=== PATIENT | female | born 1985 | race Hispanic/Latino ===

== ENCOUNTER 2017-04-06 17:19 | Inpatient (IN) | payer BC, OTHER ==
[2017-04-06] MEDS ORDERED: Nalbuphine 20 mg/ml Inj (1 ml) IVP PRN (18:19)
--- NOTE | 2017-04-06 18:28 | OBADHP ---
Datetime: 04/06/2017 18:22 Admit Comment, IP Provider: at 38.6weeks came with c/o ctxs started from thursday , irrg, 01/31. pt has bee having pain ,no vb, lof,+fm. pt had a sonogram and baby weight 8.15 lb. obhx prim pmh den med pnv all nkda psh de soch de a/p at 38+weeks with prologed latent phase admit to l_d npo/ivf labs cont khari and efm pain management cervidil dr dietz aware anticipate Pelvic Type - PN: Adequate Extremities - PN: Normal Abdomen - PN: Normal Back - PN: Normal Breast - PN: Normal Lungs - PN: Normal Heart - PN: Normal Thyroid - PN: Normal Neurologic - PN: Normal HEENT - PN: Normal General - PN: Normal FHR - Baseline A Provider: 130 Contraction Comments Provider: q1-8 Comments, ACOG Physical Exam: gravid,non tender ext no edema,no calf ten IP Hx Assessment: The History has been Reviewed and is Current Vital Signs Provider: Reviewed; Within Normal Limits IP Chief Complaint: Uterine contractions NICHD Variability Prov Fetus A: Moderate 6-25bpm NICHD Accel Fetus A IP Provider: 15X15 FHR Category Provider Fetus A: Category I NICHD Decel Fetus A IP Provider: None Dilatation, Provider: ft Effacement, Provider: 30 Station, Provider: -3 Genitourinary Exam: Normal DTRs - PN: Normal EGA AdmitDate IP: 38.6 IP Adm Impression: Term, intrauterine ; No Active Labor; Intact Membranes IP Admit Plan: Admit to unit
[2017-04-06] MEDS ORDERED: Lactated Ringer's 1,000 ML IV SCH (18:30)
[2017-04-06 18:59] LABS: BASO % 0.1 % (0.0-2.0); EOS % 0.2 % (0.0-4.0); HEMATOCRIT 35.7 % (34.0-47.0); LYMPH # 1.7 K/uL (1.0-4.3); MEAN CELL VOLUME 92.6 fL (81.0-99.0); MEAN CORPUSCULAR HEMOGLOBIN 32.1 pg (27.0-31.0); MEAN CORPUSCULAR HGB CONC 34.7 g/dL (33.0-37.0); MEAN PLATELET VOLUME 8.1 fL (7.2-11.7); MONO # 0.9 K/uL (0.0-0.8); MONO % 7.1 % (0.0-10.0); NRBC % 0.1 % (0.0-2.0); RED CELL DISTRIBUTION WIDTH 13.8 % (11.5-14.5); WHITE BLOOD COUNT 12.9 K/uL (4.8-10.8)
[2017-04-06 19:08] LABS: CHLORIDE 104 mmol/L (98-107); POTASSIUM 3.7 mmol/L (3.6-5.2); SODIUM 135 mmol/L (132-148)
[2017-04-06 19:10] LABS: BILIRUBIN,TOTAL 0.5 mg/dL (0.2-1.3); GFR AFRICAN-AMERICAN > 60
[2017-04-06 19:11] LABS: ALKALINE PHOSPHATASE 116 U/L (38-126); ALT/SGPT 23 U/L (9-52); AST/SGOT 16 U/L (14-36); BLOOD UREA NITROGEN 8 mg/dL (7-17); CARBON DIOXIDE 20 mmol/L (22-30); GLUCOSE,RANDOM 90 mg/dL (65-105); TOTAL PROTEIN 6.2 g/dL (6.3-8.3); TRANSITIONAL EPITHIAL < 1 /hpf (0-3); URINE BACTERIA FEW (<OCC); URINE BILIRUBIN NEGATIVE (NEGATIVE); URINE BLOOD NEGATIVE (NEGATIVE); URINE CALCIUM OXALATE CRYSTALS FEW /hpf (<OCC); URINE COLOR Yellow (YELLOW); URINE GLUCOSE (UA) 1+ mg/dL (Normal); URINE KETONE 1+ mg/dL (NEGATIVE); URINE LEUKOCYTE ESTERASE NEG Leu/uL (Negative); URINE PROTEIN NEGATIVE (NEGATIVE); URINE UROBILINOGEN NORMAL mg/dL (0.2-1.0); WBC URINE 5 /hpf (0-5)
[2017-04-06 19:12] LABS: CALCIUM 8.9 mg/dl (8.6-10.4)
--- NOTE | 2017-04-06 20:12 | OBPN ---
Datetime: 04/06/2017 18:22 Contraction Comments Provider: q1-8 FHR - Baseline A Provider: 130 IP Progress Note Comment: pt was examined at bed side ve closed cervidil was placed r?a/b Vital Signs Provider: Reviewed; Within Normal Limits NICHD Accel Fetus A IP Provider: 15X15 FHR Category Provider Fetus A: Category I NICHD Variability Prov Fetus A: Moderate 6-25bpm Dilatation, Provider: ft Effacement, Provider: 30 Station, Provider: -3 NICHD Decel Fetus A IP Provider: None
--- NOTE | 2017-04-07 07:34 | OBPN ---
Datetime: 04/07/2017 07:32 IP Progress Impression: Reassuring heart rate IP Progress Plan: Continue present management Contraction Comments Provider: irregular IP Progress Note Comment: S-patient denies any pain.felt some contractions FHT cat1 Tooc occ ctx sve ft/30/-3 A/P Patient at 39 wga. -cervidil removed -monitor closely -plan as per primary MD FHR Category Provider Fetus A: Category I Dilatation, Provider: ft Effacement, Provider: 30 Station, Provider: -3
[2017-04-07] MEDS ORDERED: Oxytocin 30 UNIT 30 UNITS/500 ML BAG IV PRN (08:44)
[2017-04-07] MEDS ORDERED: Oxytocin 30 UNIT 30 UNITS/500 ML BAG IV ONE (09:10)
[2017-04-07] MEDS ORDERED: Nalbuphine 20 mg/ml Inj (1 ml) ONE (09:27)
[2017-04-07] MEDS ORDERED: Bupivacaine 0.125%/FentaNYL 200 ML EPI ONE (15:34)
--- NOTE | 2017-04-07 17:11 | OBPN ---
Datetime: 04/07/2017 17:05 IP Progress Note Comment: pt seen and examined, reports pain incrased intentiy adn fruqency s/ pIV m edicatin s/p cervdil now on pitocin VSS VE: unchanged EFM: cat I toco; q 2-3 min A/p @ 38 wks ga prlonged laten pahse -anethesi consult -cont current mgmt
[2017-04-07] MEDS ORDERED: DEXTROSE IVPB ONE (18:17)
[2017-04-07] MEDS ORDERED: Sodium Citrate/Citric Acid 15 ml Sol ONE (18:17)
[2017-04-07] MEDS ORDERED: CEFOXITIN IVPB ONE (18:17)
[2017-04-07] MEDS ORDERED: Sodium Citrate/Citric Acid 15 ml Sol PO ONE (18:23)
[2017-04-07] MEDS ORDERED: cefOXitin IV 2 gm in Saline 2 GM in Sodium Chloride 0.9% 50 ML IV ONE (18:30)
[2017-04-07] MEDS ORDERED: Morphine 1 mg/ml preservative-free Inj(Duramorph) ONE (18:42)
--- NOTE | 2017-04-07 18:59 | OBPN ---
Datetime: 04/07/2017 18:39 IP Progress Note Comment: pt seen adn examined s/p epidural and rexamined with uncahged exam. pt counlsed on continue with process vs OLTCS. R/b/a/i d/w paitent not limited ot bleeding, infect ion, etc. pt and woul dliek to proceed with PLTCS althought awrae process can take 24 hours + consent signed for PLTCS Failure ot progress OR/Anestehsia kurt
[2017-04-07] MEDS ORDERED: cefOXitin IV 2 gm in Dextrose 2 GM/50 ML BAG IVPB ONE (19:00)
--- NOTE | 2017-04-07 19:52 | OBDS ---
DELIVERY PERSONNEL Delivery Doctor: Ford Patel MD Scrub Nurse: Janey Jones Client Portfolio Manager: Cecily Garcia RN Anesthesiologist: Dr. Hagen MATERNAL INFORMATION Delivery Anesthesia: Spinal Medications in Delivery: pitocin 20 units, methergin 0.2 mcg Placenta Cultured: No Maternal Complications: None Provider Comments: live female vertex presnet agpars 9,9 ebl 900 ml pediatricain present for delivery no cmpoiatisons 7lb 9 ounces LABOR SUMMARY EDC: 04/14/2017 00:00 No. Babies in Womb: 1 Attempted: No Labor Anesthesia: Epidural LABOR INFORMATION Cervical Ripening Agents: Cervidil (Annotations: removed) Oxytocin: Augmentation Group B Beta Strep: Negative Steroids Given: None Reason Steroids Not Administered: Not Applicable MEMBRANES Membranes Rupture Method: Artificial Rupture of Membranes: 04/07/2017 19:11 Length of Rupture (hrs): 0.00 STAGES OF LABOR Stage 3 hrs: 0 Stage 3 min: 1 BABY A INFORMATION Infant Delivery Date/Time: 04/07/2017 19:11 Method of Delivery: Born in Route : Yes : N/A Forceps: N/A Vacuum Extraction: N/A Shoulder Dystocia : No SHOULDER DYSTOCIA BABY A Delivery Date/Time: 04/07/2017 19:11 PRESENTATION/POSITION BABY A Presentation: Cephalic Cephalic Presentation: Vertex Vertex Position: Left Occipital Anterior Breech Presentation: N/A PLACENTA INFORMATION BABY A Placenta Delivery Time : 04/07/2017 19:12 Placenta Method of Delivery: Manual Removal Placenta Status: Delivered SCORES BABY A Heart Rate 1 min: >100 bpm Resp Effort 1 min: Good Cry Reflex Irritability 1 min: Cough or Sneeze or Pulls Away Muscle Tone 1 min: Active Motion Color 1 min: Body [place], Extremities Blue SCORE 1 MIN: 9 Heart Rate 5 min: >100 bpm Resp Effort 5 min: Good Cry Reflex Irritability 5 min: Cough or Sneeze or Pulls Away Muscle Tone 5 min: Active Motion Color 5 min: Body [place], Extremities Blue SCORE 5 MIN: 9 INFORMATION BABY A Gestational Age at Delivery: 39.0 Gestational Status: Term Infant Outcome : Liveborn Infant Condition : Stable Sex: Female IDENTIFICATION/MEDS BABY A ID Band Number: [id number] ID Band Location: Left Leg; Left Arm Sensor Applied: Yes Sensor Number: [id number] Sensor Location : Cord Clamp WEIGHT/LENGTH BABY A Birthweight (gms): 3425 Weight (lb): 7 Infant Weight (oz): 9 Infant Length Inches: 19.00 Length cms: 48.3 CORD INFORMATION BABY A No. Cord Vessels: 3 Nuchal Cord : N/A Cord Blood Taken: Yes Suction: Mouth ASSESSMENT BABY A Infant Complications: None Physical Findings at Delivery: Within Normal Limits Respirations: Appears Normal Representative Personal Service/ALS Called : No Care By: Melchor GAITAN Transferred To: Remains with Mother
--- NOTE | 2017-04-07 19:55 | PCM.SURG1 ---
Surgeon's Initial Post Op Note - Surgeon's Notes Surgeon: Hilda Patel MD Toddler Nanny: Boogie Swenson MD Type of Anesthesia: Spinal, Other Pre-Operative Diagnosis: Failure to progress, term intrauterine Operative Findings: live femase cepahlic presnta, apga 9,9 weigh of 7lb 9 ounces ebl 900 ml, peidiatircn present for dleivery. Dr Boogie Swenson was credit control assistant and prsent for entire case and essential in gain entry, retrction, expsoure, holidng bladder blade, dliever , flosing all layers, obtaining hemostaiss, Post-Operative Diagnosis: same as above Operation Performed: Primary low transverse cesearean section Specimen/Specimens Removed: placenta Estimated Blood Loss: EBL {In ML}: 900 Blood Products Given: N/A Drains Used: No Drains Post-Op Condition: Good Date of Surgery/Procedure: 04/07/17 Time of Surgery/Procedure: 19:00
[2017-04-07] MEDS: Simethicone 80 mg Chewtab PO SCH (23:35)
--- NOTE | 2017-04-08 03:27 | OBPPN ---
Datetime: 04/08/2017 03:22 PP Pain Prov: Within normal limits PP Nausea Prov: Denies PP Flatus Prov: No PP BM Prov: Yes PP Breasts Prov: Normal PP Heart Prov: Normal PP Lungs Prov: Normal PP Abdomen/Uterus Prov: Normal PP Lochia Prov: Normal PP Vulva/Perineum Prov: Normal PP CVA Tenderness Prov: Normal PP Extremities Prov: Normal PP C/S Incision Prov: Normal PP Progress Prov: Normal PP Impression Prov: Normal progression PP Plan Prov: Continue present management PP Progress Note Prov: Pt seen and examined and reports pain controlled wth medicaoin. Pt not yet am buating, +gusman, tolerating clear liquid diet, denies any lightheadness, dizzyness, Cp, SOB. Pt denie s any feelsing of anxiety, sadness or depression adn reports bresat feeding is going well. VSS PE: GEN: NAD, feels tired RESP: CTAB/l CVS: RRR, +S1/S2 BREAST: NON enogaroged b/l ABD: soft, appropriatley TTP, ND, No guaridng, no reboudn tenderness, no rigidity, +BS INCSION C/D/I FUNDUS: Fimr, at level of umbilucs VE: moderate lochia , non foul smelling EXT: non calf tnednree, negateive etienne's sign A/P s/p PLTCS POD #1 doing wel -Pain manamgent: percocet/motrin -advance diet as tolerated -d/c gusman 6am -activity out of bed with assistance -bowel regimen -encourge breast feeding -incentive spirometer -abdominal binder -f/u AM labs IP PP Procedures: None Vital Signs Provider PP: Reviewed; Within Normal Limits
[2017-04-08] MEDS: ceFAZolin 1 gm FROZEN Premix 1 GM/50 ML ML IVPB SCH ×3 (03:50→19:50)
--- NOTE | 2017-04-08 07:51 | OP ---
PROCEDURE DATE: 04/07/2017 SURGEON: Dr. Hilda Patel. FIRE SYSTEMS INSPECTOR: Dr. Boogie Swenson. TYPE OF ANESTHESIA: Spinal epidural. PREOPERATIVE DIAGNOSIS: Term intrauterine , failure to progress. POSTOPERATIVE DIAGNOSIS: Term intrauterine , failure to progress. OPERATIVE FINDINGS: Live female in cephalic presentation, 's 9 and 9, weight of 7 pounds 9 ounces. ESTIMATED BLOOD LOSS: 900 mL. POND SAWYER PRESENT FOR DELIVERY: Dr. Boogie Swenson with surgical assistance was present for entire case and assisted with getting entry, retraction, exposure, holding the bladder, delivering infant, closing all layers and obtaining hemostasis. OPERATION PERFORMED: Primary low transverse section. BLOOD PRODUCTS: None. COMPLICATIONS: None. DESCRIPTION OF PROCEDURE: The patient was taken to the operating room where she was given spinal epidural anesthesia. Once it was found to be adequate, she was placed on the operating table in dorsal lithotomy position. The patient was prepped and draped in the usual sterile fashion. Time-out confirmed correct patient and correct procedure. The patient was given prophylactic antibiotics. Pfannenstiel skin incision was made with a underlying scalpel and carried down to the underlying fascia. With the Bovie, the fascia was incised in the midline. Incision was extended laterally with Bovie. The superior aspect of the fascial incision was grasped with Allis and William clamps and the underlying rectus muscle resected off bluntly. Attention was then turned to the inferior aspect of the incision with a similar fashion, it was grasped with Allis and William clamps and the underlying rectus muscle resected off bluntly. The rectus was removed and bluntly in the midline. Peritoneum identified in the clear space and entered bluntly, incision was extended superiorly and laterally until there was good visualization of the bladder. The lower end of the [place] was then inserted. The vesicouterine peritoneum was incised in a transverse fashion. With the Metzenbaum scissors, the bladder flap created digitally. The lower end of the [place] was then inserted. The lower uterine segment was incised in a transverse fashion. The uterine segment was extended laterally and bluntly. There was clear amniotic fluid noted. The surgeon's hand entered the uterine cavity and the infant's head was delivered atraumatically followed by delivery of the shoulders and followed by delivery of body. Both oral and nasal passages of the baby were bulb suctioned. The umbilical cord was clamped and cut and the baby was handed off the awaiting study abroad coordinator. Cord blood and cord gas collected x2. The placenta was then delivered manually. The ureters was exteriorized and cleared of all clots and debris. The uterine incision was closed with 0 Vicryl in a running continuous locked fashion. Second layer of the same suture was used to close the uterus in a running imbricated manner. The ureters appeared hemostatic at the incision site; however appeared boggy and Methergine was given with massage. Following this, uterus was then returned into the abdomen. Uterine incision had good hemostasis. Paracolic gutters were cleared of all clots and debris. There was good hemostasis at the uterine incision site. The peritoneum was reapproximated with 2-0 chromic in running continuous fashion. The rectus was reapproximated with 2-0 chromic in an interrupted manner. The subcutaneous layer was closed with 2-0 plane in an interrupted manner. The skin was reapproximated and closed with 4-0 Monocryl in a running subcuticular fashion. At the end of the procedure, all needles, sponge and instrument counts were correct. The patient tolerated the procedure and was transferred to the recovery room in stable condition. Hilda Patel MD MTDLeila
[2017-04-08 08:00] LABS: CHLORIDE 104 mmol/L (98-107); POTASSIUM 3.5 mmol/L (3.6-5.2); SODIUM 132 mmol/L (132-148)
[2017-04-08 08:03] LABS: BLOOD UREA NITROGEN 5 mg/dL (7-17); CALCIUM 8.4 mg/dl (8.6-10.4); CARBON DIOXIDE 21 mmol/L (22-30); GFR AFRICAN-AMERICAN > 60; GLUCOSE,RANDOM 57 mg/dL (65-105)
[2017-04-08] MEDS: Simethicone 80 mg Chewtab PO SCH ×4 (10:21→21:23)
[2017-04-08] MEDS: Prenatal Multivit/Folic Acid/Iron Tab PO SCH (10:21)
[2017-04-08] MEDS ORDERED: DiphenhydrAMINE 50 mg/ml Inj IVP PRN (11:24)
[2017-04-08] MEDS: Oxycodone/Acetaminophen 5/325 mg Tab PO PRN ×2 (15:02→19:08)
[2017-04-08 17:13] LABS: BASO % 0.3 % (0.0-2.0); EOS % 0.3 % (0.0-4.0); HEMATOCRIT 34.1 % (34.0-47.0); LYMPH # 1.6 K/uL (1.0-4.3); LYMPH % 11.2 % (20.0-40.0); MEAN CELL VOLUME 92.5 fL (81.0-99.0); MEAN CORPUSCULAR HEMOGLOBIN 32.3 pg (27.0-31.0); MEAN CORPUSCULAR HGB CONC 34.9 g/dL (33.0-37.0); MEAN PLATELET VOLUME 7.8 fL (7.2-11.7); MONO # 1.3 K/uL (0.0-0.8); MONO % 8.7 % (0.0-10.0); RED CELL DISTRIBUTION WIDTH 13.7 % (11.5-14.5); WHITE BLOOD COUNT 14.6 K/uL (4.8-10.8)
[2017-04-08] MEDS ORDERED: Bisacodyl 5mg EC Tab PO ONE ×2 (19:58→21:30)
[2017-04-09] MEDS: Oxycodone/Acetaminophen 5/325 mg Tab PO PRN ×4 (02:43→21:36)
[2017-04-09 07:42] LABS: BASO % 0.3 % (0.0-2.0); EOS # 0.1 K/uL (0.0-0.7); EOS % 0.9 % (0.0-4.0); LYMPH # 1.9 K/uL (1.0-4.3); MEAN CELL VOLUME 93.4 fL (81.0-99.0); MEAN CORPUSCULAR HEMOGLOBIN 32.2 pg (27.0-31.0); MEAN CORPUSCULAR HGB CONC 34.5 g/dL (33.0-37.0); MEAN PLATELET VOLUME 7.9 fL (7.2-11.7); MONO # 0.9 K/uL (0.0-0.8); MONO % 8.1 % (0.0-10.0); RED CELL DISTRIBUTION WIDTH 13.8 % (11.5-14.5); WHITE BLOOD COUNT 11.4 K/uL (4.8-10.8)
[2017-04-09] MEDS: Prenatal Multivit/Folic Acid/Iron Tab PO SCH (10:02)
[2017-04-09] MEDS: Simethicone 80 mg Chewtab PO SCH ×4 (10:02→21:35)
[2017-04-09 16:55] VITALS: PULSE 89
[2017-04-10] MEDS: Oxycodone/Acetaminophen 5/325 mg Tab PO PRN ×2 (01:20→06:57)
--- NOTE | 2017-04-10 08:45 | OBPPN ---
Datetime: 04/10/2017 08:43 PP Pain Prov: Within normal limits PP Nausea Prov: Denies PP Flatus Prov: Yes PP BM Prov: Yes PP Breasts Prov: Normal PP Heart Prov: Normal PP Lungs Prov: Normal PP Abdomen/Uterus Prov: Normal PP Lochia Prov: Normal PP Vulva/Perineum Prov: Normal PP CVA Tenderness Prov: Normal PP Extremities Prov: Normal PP C/S Incision Prov: Normal PP Progress Prov: Normal PP Comments Phys Exam Prov: Incsion C/D?I healing well PP Impression Prov: Normal progression PP Plan Prov: Discharge PP Progress Note Prov: pt seen and exaiend oding well, reprorts pain controlled with meds. pt ambait ngl voidng, passing flatus, +BM VSS PE see above A/P s/p PTLCS POD #3 doign well, stable for d/c d/c home rto 1 week Vital Signs Provider PP: Reviewed; Within Normal Limits
--- NOTE | 2017-04-10 08:45 | OBDCSUM ---
Datetime: 04/10/2017 08:43 Discharged to, Provider: Home Follow up at, Provider: Dr Jorge Zapata Instr Activity: Normal activity Disch Instr Diet: Regular Discharge Instructions, Provider: Routine instructions given Discharge Diagnosis, Provider: Term Delivered Discharge Time: 04/10/2017 08:44 Follow up in weeks, Provider: 1 week Disch Referrals: None Contraception discussed, Prov: Yes Disch Activity Restrictions: No exercising; No lifting; No driving; Minimize walking; Minimize stair -climbing; No sexual activity; Nothing in vagina - [place], tampons, douche Discharge Comment, Provider: hugo dela cruz
[2017-04-10] MEDS: Simethicone 80 mg Chewtab PO SCH ×2 (09:41→13:37)
[2017-04-10] MEDS: Prenatal Multivit/Folic Acid/Iron Tab PO SCH (09:42)
[2017-04-11 21:36] VITALS: BP 112/78; RESP 18; TEMP 98.6; O2SAT 98
== END 2017-04-10 13:45 | disposition home or self-care (01) | DRG 766 ==
LOC: C.EROB 17:19 → C.4D 18:16 → UNDOADMIN 18:22 → C.4D 18:22 → C.4M 04-07 22:45
PROVIDERS: ADMIT Obstetrics & Gynecology; ATTEND Obstetrics & Gynecology
PROC: 10D00Z1 Extraction of Products of Conception, Low, Open Approach (ICD-10-PCS; principal; 2017-04-07)
PROC: 3E0P7GC Introduction of Other Therapeutic Substance into Female Reproductive, Via Natural or Artificial Opening (ICD-10-PCS; 2017-04-07)
PROC: 10907ZC Drainage of Amniotic Fluid, Therapeutic from Products of Conception, Via Natural or Artificial Opening (ICD-10-PCS; 2017-04-07)
DX: O63.9 Long labor, unspecified (principal); Z37.0 Single live birth; Z3A.38 38 weeks gestation of pregnancy